=== PATIENT | female | born 1995 | race Caucasian/White ===

== ENCOUNTER 2020-10-06 13:11 | Inpatient (IN) | payer BC, OTHER ==
[~2020-10-06] VITALS: Ht 167.6 cm; Wt 96.0 kg
[2020-10-06] MEDS ORDERED: SODIUM CHLORIDE 0.9% 1,000 ML IV ONE (15:30)
[2020-10-06] MEDS ORDERED: SODIUM CHLORIDE 0.9% 1,000 ML IVB ONE (15:30)
[2020-10-06] MEDS ORDERED: DexAMETHasone SOD PHOS 10MG/1ML VIAL INJ IV ONE (16:00)
[2020-10-06] MEDS ORDERED: hydrOXYchloroQUINE SULFATE 200 MG TAB PO ONE (16:00)
[2020-10-06] MEDS ORDERED: ASCORBIC ACID 500 MG TAB PO ONE (16:00)
[2020-10-06] MEDS ORDERED: ZINC SULFATE 220mg CAP or TAB PO ONE (16:00)
[2020-10-06] MEDS ORDERED: CHOLECALCIFEROL (VITD3) 2,000 UNIT CAP/TAB PO ONE (16:00)
[2020-10-06] MEDS ORDERED: AZITHROMYCIN 500MG/ 250ML 250 ML IV ONE (16:00)
[2020-10-06 16:09] LABS: Basophils # (auto) 0 10 ^3/uL (0-0.2); Basophils % (auto) 1.1 % (0.0-2.0); Eosinophils # (auto) 0 10 ^3/uL (0-0.8); Eosinophils % (auto) 0.2 % (0.0-7.0); Hematocrit 42.4 % (36.0-46.0); Hemoglobin 14.7 g/dL (12.2-16.2); Lymphocytes # (auto) 1.6 10 ^3/uL (0.4-5.4); Lymphocytes % (auto) 34.3 % (10.0-50.0); Mean Corpuscular Hemoglobin 31.3 pg (28.0-32.0); Mean Corpuscular Hgb Conc. 34.6 g/dL (32.0-36.0); Mean Corpuscular Volume 90.3 fL (80.0-100.0); Monocytes # (auto) 0.5 10 ^3/uL (0-1.3); Neutrophils # (auto) 2.5 10 ^3/uL (1.6-8.6); Neutrophils % (auto) 54.4 % (37.0-80.0); Nucleated Red Blood Cells % 0.1 %; Red Cell Distribution Width 13.6 % (11.8-14.3); White Blood Cell 4.7 10^3/uL (4.4-10.8)
[2020-10-06 16:21] LABS: Albumin 3.6 g/dL (3.4-5.0); Anion Gap 8 (5-15); Blood Urea Nitrogen 9 mg/dL (7-18); Calcium 8.5 mg/dL (8.5-10.1); Carbon Dioxide 27 mmol/L (21-32); Chloride 106 mmol/L (98-107); Glucose 86 mg/dL (74-106); Potassium 3.4 mmol/L (3.5-5.1); Sodium 141 mmol/L (136-145)
[2020-10-06 16:28] LABS: Alanine Aminotransferase 73 U/L (13-56); Alkaline Phosphatase 76 U/L (45-117); Aspartate Aminotransferase 73 U/L (15-37); BUN/Creatinine Ratio 11.5; Bilirubin, Total 0.4 mg/dL (0.2-1.0); GFR African American 117 mL/min; GFR Non-African American 96 mL/min; Total Protein 8.2 g/dL (6.4-8.2)
[2020-10-06] MEDS ORDERED: ACETAMINOPHEN 500 MG TAB PO PRN ×2 (19:15→19:30)
[2020-10-06] MEDS ORDERED: REMDESIVIR PER PHARMACY 0 ML IV SCH (19:15)
[2020-10-06] MEDS ORDERED: MORPHINE SULF INJ 2 MG/ML SYRINGE 1ML IV PRN ×2 (19:30)
[2020-10-06] MEDS ORDERED: NITROGLYCERIN 0.4 MG SL TAB SL PRN (19:30)
[2020-10-06] MEDS: ONDANSETRON HCL 4 MG/2 ML VIAL IV PRN (20:24)
[2020-10-06 20:44] LABS: Beta HCG, Quantitative < 1 mlU/mL (1-3); Lactate Dehydrogenase 372 U/L (84-246); Thyroid Stimulating Hormone 0.93 uIU/mL (0.358-3.74)
[2020-10-06 21:43] LABS: Urine Bacteria FEW /hpf (None Seen); Urine Blood TRACE /uL (Negative); Urine Hyaline Cast MOD /lpf (0 - 2); Urine Mucus MODERATE (None Seen); Urine Specific Gravity 1.028 (1.001-1.035); Urine WBC 72 /hpf (0 - 5)
[2020-10-06] MEDS: ENOXAPARIN SOD 40 MG/0.4 ML SYRINGE SC SCH (22:06)
[2020-10-06 22:07] VITALS: BP 118/71
[2020-10-07 02:54] VITALS: BP 103/75
[2020-10-07] MEDS: HYDROcodone-ACET 5/325MG TAB PO PRN (04:59)
[2020-10-07] MEDS: ONDANSETRON HCL 4 MG/2 ML VIAL IV PRN ×2 (04:59→14:15)
[2020-10-07 05:16] VITALS: BP 99/53
[2020-10-07 06:36] LABS: Basophils # (auto) 0 10 ^3/uL (0-0.2); Basophils % (auto) 0.5 % (0.0-2.0); Eosinophils # (auto) 0 10 ^3/uL (0-0.8); Hematocrit 37.3 % (36.0-46.0); Lymphocytes # (auto) 1.2 10 ^3/uL (0.4-5.4); Lymphocytes % (auto) 46.9 % (10.0-50.0); Mean Corpuscular Hemoglobin 30.8 pg (28.0-32.0); Mean Corpuscular Hgb Conc. 34.8 g/dL (32.0-36.0); Mean Corpuscular Volume 88.4 fL (80.0-100.0); Monocytes # (auto) 0.4 10 ^3/uL (0-1.3); Monocytes % (auto) 16.6 % (0.0-12.0); Neutrophils # (auto) 0.9 10 ^3/uL (1.6-8.6); Nucleated Red Blood Cells % 0.3 %; Red Blood Cells 4.22 10^6/uL (4.0-5.20); Red Cell Distribution Width 13.4 % (11.8-14.3); White Blood Cell 2.5 10^3/uL (4.4-10.8)
[2020-10-07] MEDS ORDERED: IVERMECTIN 3 MG TAB PO ONE (07:00)
[2020-10-07 07:20] LABS: Albumin 3.1 g/dL (3.4-5.0); Calcium 8.1 mg/dL (8.5-10.1); Potassium 3.7 mmol/L (3.5-5.1)
[2020-10-07 07:23] LABS: BUN/Creatinine Ratio 16.3
[2020-10-07 07:25] LABS: Bilirubin, Total 0.3 mg/dL (0.2-1.0); Total Protein 6.8 g/dL (6.4-8.2)
[2020-10-07 09:00] VITALS: BP 108/70
[2020-10-07] MEDS: ENOXAPARIN SOD 40 MG/0.4 ML SYRINGE SC SCH ×2 (09:23→21:30)
[2020-10-07] MEDS: cefTRIAXone 1GM/50ML D5W 50 ML IV SCH (09:23)
[2020-10-07] MEDS: CHOLECALCIFEROL (VITD3) 2,000 UNIT CAP/TAB PO SCH (09:29)
[2020-10-07] MEDS: ASCORBIC ACID 1,000 MG TAB PO SCH (09:29)
[2020-10-07] MEDS: ZINC SULFATE 220mg CAP or TAB PO SCH (09:29)
[2020-10-07] MEDS: DexAMETHasone SOD PHOS 10MG/1ML VIAL INJ IV SCH (09:30)
[2020-10-07] MEDS: AZITHROMYCIN 500MG/ 250ML 250 ML IV SCH (09:30)
[2020-10-07] MEDS: BUDESONIDE (INHALATION) 180 MCG IH IN SCH ×2 (10:00→21:35)
[2020-10-07 13:00] VITALS: BP 100/62
[2020-10-07] MEDS ORDERED: REMDESIVIR 200 MG in NS 210ml LOADING DOSE ADULT IV ONE (15:00)
[2020-10-07 17:00] VITALS: BP 102/67
[2020-10-07] MEDS: ALBUTEROL SULF HFA 90MCG INH 200DOSE IN PRN (21:35)
[2020-10-07 22:00] VITALS: BP 119/81
[2020-10-08 05:00] VITALS: BP 114/78
[2020-10-08 06:51] LABS: Calcium 8.4 mg/dL (8.5-10.1); Potassium 3.6 mmol/L (3.5-5.1)
[2020-10-08 06:56] LABS: BUN/Creatinine Ratio 19.2; Bilirubin, Total 0.3 mg/dL (0.2-1.0); Total Protein 6.7 g/dL (6.4-8.2)
[2020-10-08] MEDS: cefTRIAXone 1GM/50ML D5W 50 ML IV SCH (08:34)
[2020-10-08 09:00] VITALS: BP 109/66
[2020-10-08] MEDS: CHOLECALCIFEROL (VITD3) 2,000 UNIT CAP/TAB PO SCH (09:33)
[2020-10-08] MEDS: ZINC SULFATE 220mg CAP or TAB PO SCH (09:33)
[2020-10-08] MEDS: ASCORBIC ACID 1,000 MG TAB PO SCH (09:33)
[2020-10-08] MEDS: ENOXAPARIN SOD 40 MG/0.4 ML SYRINGE SC SCH ×2 (09:34→22:07)
[2020-10-08] MEDS: DexAMETHasone SOD PHOS 10MG/1ML VIAL INJ IV SCH (09:34)
[2020-10-08] MEDS: AZITHROMYCIN 500MG/ 250ML 250 ML IV SCH (09:35)
[2020-10-08 10:08] LABS: Basophils # (auto) 0 10 ^3/uL (0-0.2); Basophils % (auto) 0.8 % (0.0-2.0); Eosinophils # (auto) 0 10 ^3/uL (0-0.8); Eosinophils % (auto) 0.1 % (0.0-7.0); Hemoglobin 13.3 g/dL (12.2-16.2); Lymphocytes # (auto) 2.4 10 ^3/uL (0.4-5.4); Lymphocytes % (auto) 49.1 % (10.0-50.0); Mean Corpuscular Hemoglobin 30.4 pg (28.0-32.0); Mean Corpuscular Hgb Conc. 33.3 g/dL (32.0-36.0); Mean Corpuscular Volume 91.4 fL (80.0-100.0); Monocytes # (auto) 0.6 10 ^3/uL (0-1.3); Monocytes % (auto) 13.2 % (0.0-12.0); Neutrophils # (auto) 1.8 10 ^3/uL (1.6-8.6); Neutrophils % (auto) 36.8 % (37.0-80.0); Nucleated Red Blood Cells % 0.2 %; Red Blood Cells 4.37 10^6/uL (4.0-5.20); Red Cell Distribution Width 13.7 % (11.8-14.3); White Blood Cell 4.8 10^3/uL (4.4-10.8)
[2020-10-08] MEDS: BUDESONIDE (INHALATION) 180 MCG IH IN SCH ×2 (10:31→19:20)
[2020-10-08] MEDS: ALBUTEROL SULF HFA 90MCG INH 200DOSE IN PRN ×2 (10:31→19:27)
[2020-10-08 13:00] VITALS: BP 97/59
[2020-10-08] MEDS: REMDESIVIR 100mg 100 MG in SODIUM CHL 0.9% 230 ML IV SCH (15:03)
[2020-10-08 17:00] VITALS: BP 107/72
[2020-10-08 22:00] VITALS: BP 112/66
[2020-10-09] MEDS ORDERED: ZOLPIDEM TARTRATE 5 MG TAB PO ONE
[2020-10-09 05:00] VITALS: BP 107/72
[2020-10-09 06:50] LABS: Potassium 3.9 mmol/L (3.5-5.1)
[2020-10-09 06:57] LABS: Albumin 3.3 g/dL (3.4-5.0); BUN/Creatinine Ratio 17.5; Bilirubin, Total 0.3 mg/dL (0.2-1.0); Calcium 8.4 mg/dL (8.5-10.1); Total Protein 7.1 g/dL (6.4-8.2)
[2020-10-09] MEDS: ALBUTEROL SULF HFA 90MCG INH 200DOSE IN PRN ×2 (07:06→19:15)
[2020-10-09] MEDS: BUDESONIDE (INHALATION) 180 MCG IH IN SCH ×2 (07:06→18:58)
[2020-10-09 08:30] VITALS: BP 110/73
[2020-10-09] MEDS: cefTRIAXone 1GM/50ML D5W 50 ML IV SCH (09:47)
[2020-10-09] MEDS: DexAMETHasone SOD PHOS 10MG/1ML VIAL INJ IV SCH (09:49)
[2020-10-09] MEDS: ASCORBIC ACID 1,000 MG TAB PO SCH (09:49)
[2020-10-09] MEDS: ZINC SULFATE 220mg CAP or TAB PO SCH (09:49)
[2020-10-09] MEDS: CHOLECALCIFEROL (VITD3) 2,000 UNIT CAP/TAB PO SCH (09:50)
[2020-10-09] MEDS: ENOXAPARIN SOD 40 MG/0.4 ML SYRINGE SC SCH ×2 (09:50→21:12)
[2020-10-09] MEDS: ONDANSETRON HCL 4 MG/2 ML VIAL IV PRN (09:58)
[2020-10-09] MEDS: AZITHROMYCIN 500MG/ 250ML 250 ML IV SCH (10:52)
[2020-10-09] MEDS ORDERED: DOCUSATE SOD 100 MG CAP PO PRN (12:00)
[2020-10-09 13:00] VITALS: BP 112/76
[2020-10-09] MEDS: REMDESIVIR 100mg 100 MG in SODIUM CHL 0.9% 230 ML IV SCH (16:10)
[2020-10-09 16:41] VITALS: BP 112/80
[2020-10-09 19:57] VITALS: BP 112/80
[2020-10-09 22:00] VITALS: BP 112/74
[2020-10-10 05:00] VITALS: BP 113/71
[2020-10-10 06:58] LABS: Potassium 3.6 mmol/L (3.5-5.1)
[2020-10-10 07:05] LABS: Albumin 3.1 g/dL (3.4-5.0); BUN/Creatinine Ratio 22.4; Calcium 8.1 mg/dL (8.5-10.1)
[2020-10-10 07:17] LABS: Bilirubin, Total 0.3 mg/dL (0.2-1.0); Total Protein 6.4 g/dL (6.4-8.2)
[2020-10-10 09:00] VITALS: BP 125/81
[2020-10-10] MEDS: cefTRIAXone 1GM/50ML D5W 50 ML IV SCH (10:20)
[2020-10-10] MEDS: ZINC SULFATE 220mg CAP or TAB PO SCH (10:20)
[2020-10-10] MEDS: DexAMETHasone SOD PHOS 10MG/1ML VIAL INJ IV SCH (10:20)
[2020-10-10] MEDS: ASCORBIC ACID 1,000 MG TAB PO SCH (10:20)
[2020-10-10] MEDS: CHOLECALCIFEROL (VITD3) 2,000 UNIT CAP/TAB PO SCH (10:21)
[2020-10-10] MEDS: ENOXAPARIN SOD 40 MG/0.4 ML SYRINGE SC SCH ×2 (10:21→20:07)
[2020-10-10] MEDS: ONDANSETRON HCL 4 MG/2 ML VIAL IV PRN (10:35)
[2020-10-10] MEDS: HYDROcodone-ACET 5/325MG TAB PO PRN (10:35)
[2020-10-10] MEDS: AZITHROMYCIN 500MG/ 250ML 250 ML IV SCH (11:42)
[2020-10-10 13:00] VITALS: BP 120/93
[2020-10-10] MEDS: REMDESIVIR 100mg 100 MG in SODIUM CHL 0.9% 230 ML IV SCH (15:46)
[2020-10-10 17:00] VITALS: BP 116/79
[2020-10-10] MEDS: BUDESONIDE (INHALATION) 180 MCG IH IN SCH (18:56)
[2020-10-10] MEDS: ALBUTEROL SULF HFA 90MCG INH 200DOSE IN PRN (18:56)
[2020-10-10 22:00] VITALS: BP 109/73
[2020-10-11 05:00] VITALS: BP 130/85
[2020-10-11 05:53] LABS: Albumin 3.2 g/dL (3.4-5.0); Calcium 8.3 mg/dL (8.5-10.1); Potassium 3.6 mmol/L (3.5-5.1)
[2020-10-11 05:55] LABS: BUN/Creatinine Ratio 20.8
[2020-10-11 05:58] LABS: Bilirubin, Total 0.3 mg/dL (0.2-1.0); Total Protein 6.7 g/dL (6.4-8.2)
[2020-10-11] MEDS: ALBUTEROL SULF HFA 90MCG INH 200DOSE IN PRN (06:47)
[2020-10-11] MEDS: BUDESONIDE (INHALATION) 180 MCG IH IN SCH (06:47)
[2020-10-11 08:00] VITALS: BP 112/71
[2020-10-11 09:00] VITALS: BP_SYST 112; BP_DIAS 1; BP_DIAS 71
[2020-10-11] MEDS: cefTRIAXone 1GM/50ML D5W 50 ML IV SCH (09:00)
[2020-10-11] MEDS: AZITHROMYCIN 500MG/ 250ML 250 ML IV SCH (10:00)
[2020-10-11] MEDS: ASCORBIC ACID 1,000 MG TAB PO SCH (11:07)
[2020-10-11] MEDS: DexAMETHasone SOD PHOS 10MG/1ML VIAL INJ IV SCH (11:07)
[2020-10-11] MEDS: ZINC SULFATE 220mg CAP or TAB PO SCH (11:07)
[2020-10-11] MEDS: CHOLECALCIFEROL (VITD3) 2,000 UNIT CAP/TAB PO SCH (11:08)
[2020-10-11] MEDS: ENOXAPARIN SOD 40 MG/0.4 ML SYRINGE SC SCH (11:08)
[2020-10-11 13:00] VITALS: BP 113/70
[2020-10-11] MEDS: REMDESIVIR 100mg 100 MG in SODIUM CHL 0.9% 230 ML IV SCH (15:25)
[2020-10-11 16:25] VITALS: BP 115/78
[2020-10-11 17:00] VITALS: BP 116/66
== END 2020-10-11 18:17 | disposition home or self-care (01) | DRG 177 ==
LOC: ER 13:11 → TELE 19:18 → TELE-EAST 21:25
PROVIDERS: ADMIT Nurse Practitioner Family; ATTEND Internal Medicine
PROC: XW033E5 Introduction of Remdesivir Anti-infective into Peripheral Vein, Percutaneous Approach, New Technology Group 5 (ICD-10-PCS; principal; 2020-10-07)
DX: U07.1 COVID-19 (principal); J12.82 Pneumonia due to coronavirus disease 2019; J96.01 Acute respiratory failure with hypoxia; E87.6 Hypokalemia; E66.01 Morbid (severe) obesity due to excess calories; E88.09 Other disorders of plasma-protein metabolism, not elsewhere classified; R74.8 Abnormal levels of other serum enzymes; Z79.899 Other long term (current) drug therapy; Z68.35 Body mass index [BMI] 35.0-35.9, adult; Z78.9 Other specified health status; Z87.891 Personal history of nicotine dependence; Z71.3 Dietary counseling and surveillance
CPT/HCPCS: 36415; 71045; 80053; 81001; 82306; 82728; 83036; 83605; 83615; 83735; 84443; 84484; 84702; 85025; 85379; 86141; 87426; 93005; 93970; 94640; 96361; 96374; G0378; J0696; J1100; J2405